=== PATIENT | male | born 1970 | race Caucasian/White ===

== ENCOUNTER → 2022-04-26 | Outpatient (CLI) | payer MEDICAID, SELFPAY ==
--- NOTE | 2022-04-26 14:41 | CT_ITS ---
HISTORY: COPD/SMOKER. 2 PPD X 35 YEARS. TECHNIQUE: Helically acquired images were obtained of the chest without contrast. A radiation dose optimization technique was used for this scan. 582 images. COMPARISON: None. FINDINGS: LARGE AIRWAYS: Patent. LUNGS: Centrilobular emphysema with hyperinflation. Calcified right lower lobe granuloma. PLEURA: No pneumothorax or significant pleural effusion. HEART/PERICARDIUM: Heart within normal limits in size. Coronary artery calcification present. No pericardial effusion. VESSELS: Thoracic aorta nondilated. MEDIASTINUM/LOTTIE: No pathologically enlarged adenopathy. BONES: Spinal osteophytes noted. CT/Low Dose CT Lung Screening IMPRESSION: Pulmonary emphysema with a calcified right lower lobe granuloma. Lung-RADS category 1: Negative. Continue annual screening with low-dose CT. Electronically Signed: Krystal Holder MD at 16:54 EDT ,
== END | disposition home or self-care (01) ==
LOC: CT 14:40
PROVIDERS: PCP Family Medicine; Referring Provider Internal Medicine Pulmonary Disease; Visit Provider Internal Medicine Pulmonary Disease
DX: Z12.2 Encounter for screening for malignant neoplasm of respiratory organs (principal); Z87.891 Personal history of nicotine dependence
CPT/HCPCS: 71271

== ENCOUNTER 2024-02-28 19:27 | Inpatient (IN) | payer MEDICARE, MEDICAID, SELFPAY ==
[2024-02-28 19:29] VITALS: BP 107/54; PULSE 105; RESP 12; TEMP 36.9; O2SAT 100; O2SAT 99
[2024-02-28 20:52] LABS: Absolute Neutrophil Count 5.3 X10^3/uL (2.0-7.7); Basophil# 0.02 X10^3/uL; Basophil% 0.3 % (0-1); Eosinophils% 1.4 % (0-5); Hematocrit 23.1 % (40-54); Lymphocyte % 9.5 % (19-41); Mean Platelet Vol. 9.5 fl (6.2-12.0); Monocyte# 1.21 X10^3/uL; Monocyte% 16.4 % (0-10); NRBC Flagged by Analyzer 0 % (0-5); Neutrophil % 71.5 % (47-70); POSITIVE COUNT YES; Platelet Count 88 K/mm3 (150-450); RBC Distribution Width CV 14.7 % (11.6-14.6); Red Blood Count 2.18 M/mm3 (4.6-6.2); White Blood Count 7.4 K/mm3 (4.4-11.0)
--- NOTE | 2024-02-28 21:04 | CT_ITS ---
EXAM: CT ABDOMEN AND PELVIS WITH INTRAVENOUS CONTRAST CLINICAL INDICATION: Abdominal pain -- IV PO Contrast TECHNIQUE: Helically acquired images were obtained of the abdomen and pelvis with intravenous contrast. CTDIvol = ( 16.09 ) mGy, DLP = ( 1390.50 ) mGycm This CT exam was performed using one or more of the following dose reduction techniques: automated exposure control, adjustment of the mA and/or kV according to patient size, and/or use of iterative reconstruction technique. CONTRAST: Oral and amp; IV Gastrografin and amp; 100mL [id number] COMPARISON: No relevant prior studies available. FINDINGS: LOWER THORAX: Lung bases are clear. No cardiomegaly. No significant pericardial effusion. ABDOMEN: LIVER: Cirrhotic liver with recanalization of the periumbilical vein. GALLBLADDER AND BILE DUCTS: Cholelithiasis. Gallbladder sludge suspected. No gallbladder distention or wall edema. No intra- or extrahepatic biliary ductal dilation. PANCREAS: Unremarkable. No focal cystic or solid mass. SPLEEN: Unremarkable. Normal size without focal cystic or solid mass. ADRENALS: Unremarkable. No nodules. KIDNEYS AND URETERS: Unremarkable. Normal renal size and position. No hydronephrosis. STOMACH AND BOWEL: Moderate-sized fat-containing right inguinal hernia containing fluid. No bowel herniation. No bowel obstruction or diverticulitis. Circumferential thickening of the wall of the colon may be related to chronic liver disease/cirrhosis. PELVIS: APPENDIX: No evidence of acute appendicitis. BLADDER: Unremarkable. REPRODUCTIVE: Unremarkable as visualized. No mass. ABDOMEN and PELVIS: INTRAPERITONEAL SPACE: Extensive ascites. No free air. BONES/JOINTS: Unremarkable. No suspicious lytic or sclerotic lesions of bone. SOFT TISSUES: Anasarca. Small fat-containing umbilical hernia. VASCULATURE: Main portal vein appears to be patent. Abdominal aorta is non-dilated. LYMPH NODES: Unremarkable. No enlarged lymph nodes. CT/Abdomen/Pelvis WITH Contrast IMPRESSION: 1. Cirrhosis with extensive ascites/portal hypertensive changes including recanalization of paraumbilical vein. 2. Medium-sized ascites-containing right inguinal hernia. No bowel herniation. Electronically Signed: Isaias Greenberg MD at 0:16 EDT ,
--- NOTE | 2024-02-28 21:06 | ED.VIS.GI ---
HPI HPI - GI History of Present Illness Chief Complaint: Abd Pain Informant: patient and family Abdominal Pain/Flank Pain Onset: Weeks and Month(s) Context: Gradual Onset Timing: Continuous Quality: Burning Location: RLQ and LLQ Worsened by: Nothing Relieved by: Nothing Nausea/Vomiting/Emesis GI Symptom: Negative for Nausea or Vomiting Diarrhea/Melena/Hematochezia GI Symptom: Positive for Diarrhea; Negative for Melena or Hematochezia Associated Symptoms Associated Symptoms: Negative for Dysuria, Frequency, Hematuria or Urgency Narrative Narrative: Patient presents with abdominal pain and lower extremity weakness that has been getting worse over the past week to month. Patient states the abdominal pain has been constant for the past week. Patient states that his lower extremity weakness has been constant for the last month. Patient describes his pain as burning. Patient states it is mainly over the lower abdomen. Patient states it is worse whenever he coughs. Patient denies any fevers or chills. Patient denies any nausea or vomiting. Patient does admit to some diarrhea. Mother states that his eyes appear yellow. Patient does admit to drinking 2 drinks per day. Patient denies any drug use. [facility] Medical History (Updated 02/29/24 @ 01:[address] David Gonzalez DO) GERD (gastroesophageal reflux disease) COPD (chronic obstructive pulmonary disease) Hypertension Home Medications ?Medication ?Instructions ?Recorded ?Last Taken ?Type albuterol sulfate 90 mcg/actuation 2 puff inhalation Q6H PRN PRN 02/29/24 Unknown History aerosol inhaler shortness of breath or wheezing amlodipine 5 mg tablet 5 mg PO DAILY 02/29/24 Unknown History budesonide-formoterol HFA 160 2 puff inhalation BID 02/29/24 Unknown History mcg-4.5 mcg/actuation aerosol inhaler (Symbicort) lisinopril 40 mg tablet 40 mg PO DAILY 02/29/24 Unknown History Allergy/AdvReac Type Severity Reaction Status Date / Time No Known Allergies Allergy Verified 02/28/24 19:29 Surgical History no surgical history no surgical history Social History Smoking Status: Current every day smoker tobacco type: cigarettes and smokeless tobacco ROS ROS ED Constitutional Constitutional ED: Denies chills or fever(s) Eyes Eyes: Reports blurry vision and change in vision ENT ENT ED: Denies rhinorrhea or sore throat Cardiovascular Cardiovascular: Denies chest pain or palpitations Respiratory/Chest Respiratory/Chest: Denies cough or dyspnea Gastrointestinal Gastrointestinal: Reports abdominal pain and diarrhea; Denies nausea or vomiting Genitourinary Genitourinary ED: Denies dysuria or hematuria Musculoskeletal Musculoskeletal: Denies back pain or neck pain Integumentary Denies abscess or rash Neurologic Neurologic: Reports weakness; Denies headache(s) Allergic/Immunologic Allergic/Immunologic ED: Denies mouth swelling or urticaria EXAM Physical Exam Const Vital Signs: 02/28/24 19:29 02/28/24 19:29 02/28/24 20:43 Temperature 98.5 F 98.5 F Temperature Source Oral Oral Pulse Rate 105 H 105 H Respiratory Rate 12 12 Respiratory Effort Normal Respiratory Pattern Normal Blood Pressure 107/54 L 107/54 L Blood Pressure Mean 71 71 Pulse Ox 99 100 Oxygen Delivery Method Room Air Room Air Oxygen Flow Rate (L/min) 02/28/24 21:28 02/28/24 23:00 02/29/24 01:00 Temperature Temperature Source Pulse Rate 89 102 H 91 Respiratory Rate 16 20 H 20 H Respiratory Effort Respiratory Pattern Blood Pressure 118/58 L 146/74 H 134/70 H Blood Pressure Mean 78 98 91 Pulse Ox 100 93 93 Oxygen Delivery Method Room Air Room Air Room Air Oxygen Flow Rate (L/min) 02/29/24 01:45 02/29/24 01:46 Temperature Temperature Source Pulse Rate Respiratory Rate Respiratory Effort Respiratory Pattern Blood Pressure Blood Pressure Mean Pulse Ox 88 93 Oxygen Delivery Method Room Air Nasal Cannula Oxygen Flow Rate (L/min) 2 Positive well nourished and well developed General Appearance ED: well developed and NAD HEENT Reports moist mucous membranes Eyes EOMs intact bilaterally General Eye ED: Yes scleral icterus Neck supple and no JVD Resp normal respiratory effort and clear to auscultation bilaterally Cardio regular rate and regular rhythm GI GI Narrative: There is ascites noted on exam. The abdomen is distended. Palpation: soft and tender LLQ, RLQ and suprapubic; Negative for guarding or rebound tenderness present Neuro CN's II-XII intact bilaterally, moves all extremities and no sensory deficits noted Sensorium / Orientation: alert Motor Exam: general weakness MDM MDM MDM Narrative Medical decision making narrative: Differential diagnosis includes anemia, electrolyte abnormality, cirrhosis, hepatic encephalopathy, cholecystitis, cholelithiasis, sepsis, and pancreatitis. CBC will be obtained to assess for leukocytosis and anemia. Comprehensive metabolic profile will be obtained to assess for hepatic function, renal function, and electrolyte abnormality. Lipase will be obtained to assess for pancreatitis. Serum lactate will be obtained to assess for sepsis. PT with INR and PTT will be obtained to assess for coagulopathy and hepatic function. Serum alcohol level will be obtained to assess for alcohol intoxication. Ammonia level will be obtained to assess for hepatic encephalopathy. CT scan of the abdomen and pelvis will be obtained to assess for cholecystitis, ascites, bowel obstruction, and perforation. Lab Data Attestation: I reviewed the patient's lab results. Lab results narrative: CBC was reviewed. There is an anemia with a hemoglobin of 8.4 hematocrit 23.1. Platelets were low at 88. White blood cell count was normal. Comprehensive metabolic profile showed a sodium of 112 and a chloride of 77. Total bilirubin was elevated at 10.8. AST was slightly elevated at 122, ALT was 49. PT with INR and PTT were reviewed. Pro time was elevated at 26.3. INR is 2.4. PTT was elevated at 41.2. Lipase was reviewed and was slightly elevated at 104. Serum alcohol level was reviewed and was 18. Serum ammonia level was reviewed and was less than 10. Urinalysis was reviewed. Leukocyte Estrace was only 25. There were 5-10 white blood cells and 1+ bacteria. Nitrates were negative. Occult blood was 25 and there were 5-10 red blood cells noted. Labs: Laboratory Results - last 24 hr 02/28/24 02/28/24 02/28/24 20:35 21:12 23:00 WBC 7.4 RBC 2.18 L Hgb 8.4 L Hct 23.1 L MCV 106.0 H MCH 38.5 H MCHC 36.4 H RDW Std Deviation 56.0 H RDW Coeff of Pushpa 14.7 H Plt Count 88 L MPV 9.5 Immature Gran % (Auto) 0.900 Neut % (Auto) 71.5 H Lymph % (Auto) 9.5 L Mercer % (Auto) 16.4 H Eos % (Auto) 1.4 Baso % (Auto) 0.3 Absolute Neuts (auto) 5.3 Absolute Lymphs (auto) 0.70 L Nucleated RBC % 0 PT 26.3 H INR 2.4 APTT 41.2 H Sodium 112 L* Potassium 4.8 Chloride 77 L Carbon Dioxide 27.0 Anion Gap 8 BUN 21 H Creatinine 0.91 Est GFR (MDRD) Af Amer 112 Est GFR (MDRD) Non-Af 93 BUN/Creatinine Ratio 23.1 H Glucose 87 Lactic Acid 2.4 H* Calcium 8.4 L Total Bilirubin 10.80 H AST 122 H ALT 49 Alkaline Phosphatase 101 Ammonia < 10.0 L Total Protein 7.1 Albumin 1.9 L Globulin 5.2 H Albumin/Globulin Ratio 0.4 L Lipase 104 H Urine Color Urine Clarity Urine pH Ur Specific [place] Urine Protein Urine Glucose (UA) Urine Ketones Urine Occult Blood Urine Nitrite Urine Bilirubin Urine Urobilinogen Ur Leukocyte Esterase Urine RBC Urine WBC Ur Squamous Epith Cells Urine Bacteria Urine Mucus Ethyl Alcohol 18.0 02/28/24 02/29/24 23:37 01:42 WBC RBC Hgb Hct MCV MCH MCHC RDW Std Deviation RDW Coeff of Pushpa Plt Count MPV Immature Gran % (Auto) Neut % (Auto) Lymph % (Auto) Mercer % (Auto) Eos % (Auto) Baso % (Auto) Absolute Neuts (auto) Absolute Lymphs (auto) Nucleated RBC % PT INR APTT Sodium Potassium Chloride Carbon Dioxide Anion Gap BUN Creatinine Est GFR (MDRD) Af Amer Est GFR (MDRD) Non-Af BUN/Creatinine Ratio Glucose Lactic Acid 2.1 H* Calcium Total Bilirubin AST ALT Alkaline Phosphatase Ammonia Total Protein Albumin Globulin Albumin/Globulin Ratio Lipase Urine Color Jenny Urine Clarity Clear Urine pH 5.0 Ur Specific [place] 1.010 Urine Protein 30 H Urine Glucose (UA) Normal Urine Ketones 15 H Urine Occult Blood 25 H Urine Nitrite Negative Urine Bilirubin 6 H Urine Urobilinogen 8 H Ur Leukocyte Esterase 25 H Urine RBC 5-10 SEEN Urine WBC 5-10 SEEN Ur Squamous Epith Cells 0-5 SEEN Urine Bacteria 1+ Urine Mucus 0 SEEN Ethyl Alcohol Radiography Diagnostic Testing: Clinical Impression(s) from Imaging Studies Abdomen/Pelvis CT 02/28/24 21:04 IMPRESSION: 1. Cirrhosis with extensive ascites/portal hypertensive changes including recanalization of paraumbilical vein. 2. Medium-sized ascites-containing right inguinal hernia. No bowel herniation. Electronically Signed: Isaias Greenberg MD at 0:16 EDT , CT scan of the abdomen and pelvis was obtained. There is evidence of cirrhosis with extensive ascites and portal hypertension. There is a right inguinal hernia containing ascites and fat. This was interpreted by the radiologist and was also independently reviewed by myself. Management Discussion w/another healthcare provider: Hospitalist and [employer] Additional Tests and Interventions Additional Tests or Interventions: Urine culture was ordered. Treatment and Re-Evaluation :: Patient was given IV fluids. Patient was given a dose of morphine and Zofran initially. Patient started complaining of some reflux symptoms. Patient was given a GI cocktail for this. Patient was feeling better after that. Patient was advised of his findings. Patient was advised of the need for admission to the hospital. Case was discussed with the hospitalist. He will admit the patient to PCU to his service. Patient and family understood and were agreeable with the plan. All questions were answered. Discharge Plan Dx/Rx/DC Orders Clinical Impression: Acute hyponatremia, Hyperbilirubinemia, Cirrhosis, Lactic acidosis Disposition Disposition: [facility] Discharge Date/Time: 02/29/24 02:34
[2024-02-28 21:11] LABS: ALB/GLOB Ratio 0.4 RATIO (0.9-2.4); AST(SGOT) 122 U/L (15-37); Alanine Aminotransfer ALT/SGPT 49 U/L (16-61); Albumin, Serum 1.9 g/dL (3.2-5.0); Alkaline Phosphatase 101 U/L (45-117); Anion Gap 8 (5-15); BUN 21 mg/dL (7-18); BUN/Creat Ratio 23.1 RATIO (10-20); Calcium,Total 8.4 mg/dL (8.5-10.1); Chloride 77 mmol/L (98-107); Creatinine, Serum 0.91 mg/dL (0.70-1.30); EST Glomerular Filtration Rate 93 mL/min (>60); Est Glom Filt Rate - Afr Amer 112 mL/min (>60); Globulin 5.2 g/dL (2.2-4.2); Glucose 87 mg/dL (74-106); Potassium 4.8 mmol/L (3.5-5.1); Protein, Total 7.1 g/dL (6.4-8.2); Sodium Level 112 mmol/L (136-145)
[2024-02-28 21:19] VITALS: BMI 34.4
[2024-02-28] MEDS: Morphine 4 MG/ML Syringe IV (21:21)
[2024-02-28] MEDS: 0.9% Normal Saline (1000mL) 1,000 ML 1000 ML IV (21:21)
[2024-02-28] MEDS: Ondansetron 4 MG/2 ML Vial IV (21:21)
[2024-02-28 21:23] LABS: Hemoglobin 8.4 g/dL (13.0-16.5); Mean Corp Hgb Conc 36.4 g/dL (32-36); Mean Corpuscular Hgb 38.5 pg (27.0-32.0)
[2024-02-28 21:28] VITALS: BP 118/58; PULSE 89; RESP 16; O2SAT 100
[2024-02-28 21:37] LABS: International Normalized Ratio 2.4; Prothrombin Time (Protime)PT. 26.3 SECONDS (11.7-14.9)
[2024-02-28 21:38] LABS: Lipase 104 U/L (13-75); Partial Thromboplast Time 41.2 Seconds (24.1-36.2)
[2024-02-28 21:57] LABS: Lactic Acid 2.4 mmol/L (0.4-1.9)
[2024-02-28 23:00] VITALS: BP 146/74; PULSE 102; RESP 20; O2SAT 93
[2024-02-28] MEDS: Mag Hydrox/Al Hydrox/Simeth 30 ML UDC PO (23:22)
[2024-02-28] MEDS: Lidocaine 2% Viscous15 ML UDC 15 ML PO (23:22)
[2024-02-28 23:42] LABS: Mucous, Urine 0 SEEN /hpf (<or=2+)
[2024-02-28 23:48] LABS: Ammonia < 10.0 umol/L (11-32)
[2024-02-28 23:51] LABS: Color, Urine Amber (Yellow); Glucose, Dipstick Normal (Normal); Ketone-Dipstick 15 mg/dl (Negative); Leukocyte Esterase-Dipstick 25 /ul (Negative); Nitrite-Dipstick Negative (Negative); Occult Blood-Urine 25 /ul (Negative); Protein-Dipstick 30 mg/dl (Negative); Urine Clarity Clear (Clear); Urine Urobilinogen 8 mg/dl (Normal)
[2024-02-29] VITALS (32 sets, daily range): BP systolic 60–142; BP diastolic 30–114; PULSE 76–104; RESP 16–32; TEMP 36.1–37; O2SAT 86–100; BMI 33.9
--- NOTE | 2024-02-29 | FLU_PTH ---
PATIENT: ALEX GAYTAN LOC: [facility] U#:[id number] AGE/SX: 54/M ROOM: ICU03 RE02/29/[address]: Dr. Noris Pantoja MD : 1970 BED: 1 DIS: 03/01/2024 SPEC #: [id number] RECD: 02/29/24 08:37 STATUS: FRANCISCO JAVIER REQ #: [id number] JESS: 02/29/24 00:[address]: Noris Pantoja DEPT: CYTOLOGY RECD BY: Claritza Ruiz ENTERED: 02/29/24 10:11 SP TYPE: Fluid OTHR DR: Dr. Gagan Aburto, MD [address] [facility], DO Tissues: PARACENTESIS FLUID Procedures: Special Stain Group II Surgery Specimen Level IV Cytospin Fluid HEADER OPERATION: Paracentesis PRE-OP DIAGNOSIS: Ascites TISSUE SUBMITTED: Paracentesis fluid for cytology DIAGNOSIS CYTOLOGY Paracentesis fluid for cytology (cytopsin and cellblock): Negative for malignant cells. AM/ 03/01/2024 CYTOLOGY STUDY Slides are reviewed. CYTOLOGY GROSS Received is 85 ml of hazy yellow fluid labeled with the patient's name and and designated per the requisition as Paracentesis fluid. Submitted for cytology preparation including cell block. Mr 02/29/2024 TC:5 CPT: 90776
[2024-02-29 00:07] LABS: Urine Bilirubin Dipstick 6 mg/dL (Negative)
[2024-02-29 00:08] LABS: Bacteria 1+ /hpf (None Seen); Red Blood Cells-Urine 5-10 SEEN /hpf (0-5); Squamous Epithelial Cells - UA 0-5 SEEN /hpf (0-5); White Blood Cells 5-10 SEEN /hpf (0-5)
[2024-02-29 01:18] LABS: Reflex Lactate? Y
--- NOTE | 2024-02-29 01:33 | PCM.HP.STD ---
HPI - General General Date of Admission: 02/29/24 Date of Service: 02/29/24 Chief Complaint: Worsening abdominal pain and distention HPI Narrative ALEX GAYTAN, is a 54 M who presented to [facility] ED on 02/29/2024 with worsening abdominal pain and distention. Patient seen at bedside in the ED. He was sitting up fairly comfortably in bed, making appropriate eye contact and answering questions with short appropriate responses. He did seem to have mild cognitive delay. He otherwise was in no acute distress. Patient states his abdomen has steadily been increasing in size over about a month. He has never had this before. Patient reports fairly heavy drinking history in the past but states has been weaning himself off alcohol since his abdominal pain and distention started and is currently only having about 2 beers per day. Denies any alcohol withdrawal symptoms. Has had decreased appetite and has felt more full over the past 2 weeks. Denies any fevers or chills. Reports occasional diarrhea but denies any nausea or vomiting. He otherwise currently denies any acute concerns. Per ED staff, patient mother was present with him on arrival to the ED. She also noticed that his eyes were becoming more yellow and his skin seem to be yellowing as well. Patient states that he lives with his girlfriend. States he has not been able to do much around the house over the past few weeks. Vitals in ED notable for mild sinus tachycardia, otherwise unremarkable. No baseline labs were available. Labs in ED notable for hemoglobin 8.4, MCV 106, platelets 88, INR 2.4, sodium 112, potassium 4.8, chloride 77, bicarb 27, BUN 21, creatinine 0.91, T. bili 10.0, AST 122, ALT 49, alk phos 101, albumin 1.9. Lactate 2.4. CT abdomen pelvis with IV contrast showed cirrhosis with extensive ascites along with anasarca. In the ED, patient was given 1 L normal saline bolus along with serial doses of IV morphine and IV Zofran. Patient was then admitted for further management. [facility] Medical History (Updated 02/29/24 @ 06:[address] Gagan Aburto, DO) GERD (gastroesophageal reflux disease) COPD (chronic obstructive pulmonary disease) Hypertension Home Medications ?Medication ?Instructions ?Recorded ?Last Taken ?Type albuterol sulfate 90 mcg/actuation 2 puff inhalation Q6H PRN PRN 02/29/24 Unknown History aerosol inhaler shortness of breath or wheezing amlodipine 5 mg tablet 5 mg PO DAILY 02/29/24 Unknown History budesonide-formoterol HFA 160 2 puff inhalation BID 02/29/24 Unknown History mcg-4.5 mcg/actuation aerosol inhaler (Symbicort) lisinopril 40 mg tablet 40 mg PO DAILY 02/29/24 Unknown History Allergy/AdvReac Type Severity Reaction Status Date / Time No Known Allergies Allergy Verified 02/29/24 03:15 Surgical History no surgical history Social History Smoking Status: Current every day smoker tobacco type: cigarettes and smokeless tobacco ROS Constitutional Constitutional: Reports fatigue; Denies chills or fever(s) Eyes Eyes: Denies change in vision Cardiovascular Cardiovascular: Denies chest pain Respiratory/Chest Respiratory/Chest: Reports shortness of breath with exertion; Denies cough, shortness of breath at rest or wheezing Gastrointestinal Gastrointestinal: Reports abdominal pain and diarrhea; Denies constipation, nausea or vomiting Neurologic Neurologic: Denies dizziness, focal weakness or headache(s) Vital Signs Vital Signs Vital Signs: 02/28/24 19:29 02/28/24 19:29 02/28/24 20:43 Temperature 98.5 F 98.5 F Temperature Source Oral Oral Pulse Rate 105 H 105 H Respiratory Rate 12 12 Respiratory Effort Normal Respiratory Pattern Normal Blood Pressure 107/54 L 107/54 L Blood Pressure Mean 71 71 Pulse Ox 99 100 Oxygen Delivery Method Room Air Room Air 02/28/24 21:28 02/28/24 23:00 02/29/24 01:00 Temperature Temperature Source Pulse Rate 89 102 H 91 Respiratory Rate 16 20 H 20 H Respiratory Effort Respiratory Pattern Blood Pressure 118/58 L 146/74 H 134/70 H Blood Pressure Mean 78 98 91 Pulse Ox 100 93 93 Oxygen Delivery Method Room Air Room Air Room Air Weight Weight: 105.7 kg Body Mass Index (BMI) 34.4 Physical Exam Const alert and no apparent distress Constitutional Narrative: Middle-age male, obese, sitting up fairly comfortably in bed, mild cognitive slowing noted but otherwise answering questions appropriately, in no acute distress. General Appearance: cooperative and comfortable HEENT normocephalic, head/scalp atraumatic, hearing grossly normal bilaterally and nasal mucous membranes and turbinates normal Eyes PERRL, EOMs intact bilaterally and conjunctivae normal Neck full ROM Chest inspection of chest normal Resp normal respiratory effort and no use of accessory muscles Resp Narrative: Mildly decreased breath sounds in bilateral lung bases. No wheezing or rales noted. Cardio regular rate, regular rhythm, no murmurs and peripheral pulses 2+ throughout GI GI Narrative: Moderate to severe abdominal distention with fluid wave noted. No tenderness to palpation. Back/Spine normal ROM Extremity normal to inspection, full ROM and no pedal edema Skin no rashes or lesions noted Neuro moves all extremities and no focal motor deficits Speech: speech normal Psych mental status grossly normal Results Lab / Micro Data 02/29/24 05:07 02/29/24 02:22 Labs: Laboratory Results - last 24 hr 02/28/24 20:35: WBC 7.4, RBC 2.18 L, Hgb 8.4 L, Hct 23.1 L, MCV 106.0 H, MCH 38.5 H, MCHC 36.4 H, RDW Std Deviation 56.0 H, RDW Coeff of Pushpa 14.7 H, Plt Count 88 L, MPV 9.5, Immature Gran % (Auto) 0.900, Neut % (Auto) 71.5 H, Lymph % (Auto) 9.5 L, [place] % (Auto) 16.4 H, Eos % (Auto) 1.4, Baso % (Auto) 0.3, Absolute Neuts (auto) 5.3, Absolute Lymphs (auto) 0.70 L, Nucleated RBC % 0, Sodium 112 L*, Potassium 4.8, Chloride 77 L, Carbon Dioxide 27.0, Anion Gap 8, BUN 21 H, Creatinine 0.91, Est GFR (MDRD) Af Amer 112, Est GFR (MDRD) Non-Af 93, BUN/Creatinine Ratio 23.1 H, Glucose 87, Calcium 8.4 L, Total Bilirubin 10.80 H, AST 122 H, ALT 49, Alkaline Phosphatase 101, Total Protein 7.1, Albumin 1.9 L, Globulin 5.2 H, Albumin/Globulin Ratio 0.4 L 02/28/24 21:12: PT 26.3 H, INR 2.4, APTT 41.2 H, Lactic Acid 2.4 H*, Lipase 104 H, Ethyl Alcohol 18.0 02/28/24 23:00: Ammonia < 10.0 L 02/28/24 23:37: Urine Color Jenny, Urine Clarity Clear, Urine pH 5.0, Ur Specific [place] 1.010, Urine Protein 30 H, Urine Glucose (UA) Normal, Urine Ketones 15 H, Urine Occult Blood 25 H, Urine Nitrite Negative, Urine Bilirubin 6 H, Urine Urobilinogen 8 H, Ur Leukocyte Esterase 25 H, Urine RBC 5-10 SEEN, Urine WBC 5-10 SEEN, Ur Squamous Epith Cells 0-5 SEEN, Urine Bacteria 1+, Urine Mucus 0 SEEN Imaging Radiology Impression Abdomen/Pelvis CT 02/28/24 21:04 IMPRESSION: 1. Cirrhosis with extensive ascites/portal hypertensive changes including recanalization of paraumbilical vein. 2. Medium-sized ascites-containing right inguinal hernia. No bowel herniation. Electronically Signed: Isaias Greenberg MD at 0:16 EDT , Assessment & Plan Assessment/Plan (1) Acute liver failure: (2) Decompensation of cirrhosis of liver: (3) Alcohol abuse: (4) Hyponatremia: PLAN: Plan Patient is a 54-year-old male who presented to [facility] ED on 02/29/2024 with worsening abdominal pain and distention. 1. Acute liver failure suspected secondary to decompensated alcoholic cirrhosis with ascites ? Admit under inpatient status to PCU. GI consulted. MELD-Na score on admit of 31, Maddrey's score of 67. Suspect elevated INR may impart be due to a nutritional deficiency, will give a dose of IV vitamin K 5 mg. Radiology consulted for diagnostic and therapeutic ultrasound-guided paracentesis. Will defer to GI on consideration of steroids. Acute hepatitis panel ordered. Acetaminophen level ordered. Monitor closely. 2. Severe hyponatremia ? Sodium 112 on admit. Chloride 77. Mild cognitive slowing noted but otherwise alert and oriented x 3, suspect this is more chronic than acute. Serum osmolality, urine osmolality and urine sodium ordered. Given 1 L normal saline in the ED, repeat sodium 4 hours later only up to 115. Will hold on further IV fluids for now, repeat BMP at 6 AM. Nephrology consulted. Goal sodium level 118-120 in first 24 hours. 3. Macrocytic anemia ? Hemoglobin 8.4 on admit, MCV 106. Baseline unknown. No active signs of bleeding noted. Iron studies showed normal iron level, ferritin significantly elevated at 3923. Vitamin B12 level greater than 2000, folate 5. Seems most consistent with anemia of chronic disease. Monitor daily CBC. 4. Alcohol abuse ? Previous heavy drinker, denies history of alcohol withdrawal. Has been self weaning recently per his report, suspect due to feeling poor with decompensated cirrhosis. Alcohol level only 18 on admit. [facility] protocol ordered with as needed medications per alcohol withdrawal order set. Folate and thiamine ordered. 5. Elevated lactic acid ? Lactate 2.4 on admit, slightly improved to 2.1 with IV fluid resuscitation. Suspect poor clearance of lactate due to acute liver failure. Treatment as above. 6. Thrombocytopenia ? Platelets 88 on admit. Baseline unknown. No active signs of bleeding. Presumed secondary to cirrhosis. Monitor daily CBC. Chronic medical conditions: ? Obesity: BMI 33 on admit. Complicates hospital course, care and prognosis. ? Hypertension: Home regimen of amlodipine 5 mg daily and lisinopril 40 mg daily. Normotensive on admission and given liver failure as noted above, will hold home medications for now. ? COPD: Not on home O2. Stable, not in acute exacerbation. Continue home inhalers. DVT prophylaxis: SCDs given elevated INR and thrombocytopenia CODE STATUS: Full code, unverified Expected disposition: TBD Total clinical time spent by myself addressing the patient's medical issues, reviewing all the data, and collaborating with patient's care team: 75 minutes. Charges/Coding Visit Charges Inpatient E&M: 52420 Init Hosp L3
[2024-02-29 02:29] LABS: Lactic Acid 2.1 mmol/L (0.4-1.9)
[2024-02-29 03:00] LABS: Anion Gap 9 (5-15); BUN 25 mg/dL (7-18); BUN/Creat Ratio 21.2 RATIO (10-20); Calcium,Total 8.6 mg/dL (8.5-10.1); Chloride 77 mmol/L (98-107); Creatinine, Serum 1.18 mg/dL (0.70-1.30); EST Glomerular Filtration Rate 69 mL/min (>60); Est Glom Filt Rate - Afr Amer 83 mL/min (>60); Estimated Creatinine Clearance 86.08 ml/min; Glucose 93 mg/dL (74-106); Potassium 4.9 mmol/L (3.5-5.1); Sodium Level 115 mmol/L (136-145)
[2024-02-29] MEDS: 0.9% Saline Lock 10 ML Syringe IV ×2 (03:28→04:10)
[2024-02-29] MEDS: Phytonadione (Vit K) 5 MG in 0.9% Normal Saline (50mL Bag) 50 ML 150 MG IV (03:28)
[2024-02-29 03:32] LABS: Osmolality, Serum 261 mOsm/KG (275-295)
[2024-02-29 03:58] LABS: Ferritin 3923 ng/mL (26-388); Iron 87 ug/dL (65-175); Iron Binding Capacity,Total 104 ug/dL (250-450); PERCENT IRON SATURATION 83.7 % (15.0-55.0)
[2024-02-29] MEDS: oxyCODONE 5 MG Tablet PO (04:10)
[2024-02-29 05:11] LABS: Vitamin B12 > 2000 pg/mL (211-911)
[2024-02-29 05:20] LABS: Hematocrit 23.8 % (40-54); Hemoglobin 8.8 g/dL (13.0-16.5); Mean Corpuscular Hgb 39.1 pg (27.0-32.0); Mean Corpuscular Volume 105.8 fL (80-94); Mean Platelet Vol. 9.4 fl (6.2-12.0); POSITIVE COUNT YES; Platelet Count 94 K/mm3 (150-450); RBC Distribution Width CV 14.8 % (11.6-14.6); RBC Distribution Width SD 57.3 fl (35.1-43.9); Red Blood Count 2.25 M/mm3 (4.6-6.2); White Blood Count 9.7 K/mm3 (4.4-11.0)
[2024-02-29 05:27] LABS: International Normalized Ratio 2.6; Prothrombin Time (Protime)PT. 27.7 SECONDS (11.7-14.9)
[2024-02-29 06:08] LABS: ALB/GLOB Ratio 0.4 RATIO (0.9-2.4); AST(SGOT) 133 U/L (15-37); Alanine Aminotransfer ALT/SGPT 54 U/L (16-61); Albumin, Serum 1.9 g/dL (3.2-5.0); Alkaline Phosphatase 101 U/L (45-117); Anion Gap 8 (5-15); BUN 26 mg/dL (7-18); BUN/Creat Ratio 18.2 RATIO (10-20); Calcium,Total 8.6 mg/dL (8.5-10.1); Chloride 77 mmol/L (98-107); Creatinine, Serum 1.43 mg/dL (0.70-1.30); EST Glomerular Filtration Rate 55 mL/min (>60); Est Glom Filt Rate - Afr Amer 67 mL/min (>60); Estimated Creatinine Clearance 71.03 ml/min; Globulin 5.4 g/dL (2.2-4.2); Glucose 91 mg/dL (74-106); Potassium 5.1 mmol/L (3.5-5.1); Protein, Total 7.3 g/dL (6.4-8.2); Sodium Level 114 mmol/L (136-145)
[2024-02-29 06:48] LABS: Acetaminophen (Tylenol) Level < 2.0 ug/mL (10.0-30.0)
[2024-02-29] MEDS: Budesonide Respules 0.5 MG/2 ML AMPUL.NEB. INHALATION ×2 (07:15→19:59)
[2024-02-29] MEDS: Albuterol 2.5 MG/3 ML VIAL.NEB. INHALATION ×3 (07:15→19:59)
[2024-02-29] MEDS: Lidocaine 2% (20 ml mdv) 20 ML Vial INFILT (08:17)
[2024-02-29] MEDS: Thiamine Hydrochloride 100 MG Tablet PO (08:55)
[2024-02-29] MEDS: Folic Acid 1 MG Tablet 2 MG PO (08:56)
[2024-02-29 09:42] LABS: Appearance/Body Fluid SL CLDY; Auto B Fluid Analyzer BKGD Ct COUNTS W/IN LIMITS (W/IN LIMITS); Color/Body Fluid YELLOW; Source- Body Fluid PARACENTESIS
[2024-02-29 09:43] LABS: Red Cell Count/Body Fluid 430 /mm3; White Blood Count/Body Fluid 425 /mm3
[2024-02-29 09:51] LABS: Body Fluid QC Type(s) BF1Q
[2024-02-29 10:01] LABS: Lymphocytes 4 %; Mesothelial Cells 7 %; Monocytes 10 %; Neutrophil (Segs) 71 %; Other Cell Type/BF 8 %
--- NOTE | 2024-02-29 10:23 | PRO.PCM_ITS ---
Procedure Report Date of Procedure: 02/29/24 Assessment & Plan Assessment/Plan (1) Ascites: QUALIFIERS: Ascites type: due to alcoholic cirrhosis Qualified Code(s): K70.31 - Alcoholic cirrhosis of liver with ascites PLAN: PROCEDURE: Ultrasound guided paracentesis ORDERING PROVIDER: Dr. Aburto INDICATION: Male, 54 years old. Ascites. PROVIDER: KLAUDIA Ngo TECHNIQUE: The risks, benefits, and alternatives to the procedure were explained to the patient. The specific risks of bleeding, infection, and damage to bowel were detailed and accepted. Witnessed informed consent was obtained. The abdomen was ultrasonographically surveyed. An appropriate pocket of fluid was identified in the right lower quadrant. The skin was prepped with ch lorhexidine and sterile field established. 2% lidocaine was used for local anesthetic. Using ultrasound guidance, the peritoneal cavity was accessed with a 5-Serbian paracentesis needle/catheter system. The trocar was removed. A total of 3550 ml of cloudy marta colored fluid was removed from the peritoneal cavity. The catheter was removed and a sterile dressing was applied. The procedure was well tolerated. IMPRESSION: Successful ultrasound-guided paracentesis with right lower quadrant access site. Procedures Radiology Radiology US Procedures: 36253 Paracentesis
--- NOTE | 2024-02-29 11:12 | PN_ITS ---
Subjective Subjective Patient seen and examined. He was admitted with a complaint of abdominal distension. He has a history of chronic alcohol abuse. He said he had never been diagnosed with any liver disease. He was found to have ascites and had paracentesis done today. Patient seen after paracentesis. He had no active complaints. HE denied any fever, chills, cough, chest pain, palpitations, dizziness, nausea, vomiting or diarrhea. Review of systems is otherwise negative. He says he has stopped drinking, but his last drink was actually 2-3 days before admission. Review of systems is otherwise negative. Objective Data Objective Data Vital Signs: Vital Signs Temp Pulse Resp BP Pulse Ox O2 Del Method O2 Flow Rate 97.8 F 94 20 H 95/49 L 94 Nasal Cannula 4 02/29/24 08:50 02/29/24 11:01 02/29/24 08:50 02/29/24 11:01 02/29/24 08:50 02/29/24 09:59 02/29/24 09:59 Oxygen Flow Rate (L/min) 4 Oxygen Delivery Method Nasal Cannula Weight: 229 lb 8.019 oz Body Mass Index (BMI) 33.9 Intake & Output: Intake and Output for Last 24 Hours 02/27/24 02/28/24 02/29/24 23:59 23:59 23:59 Intake Total 1000 / 1000 50.5 / 50.5 Output Total 3550 / 3550 Balance 1000 / 1000 -3499.5 / -3499.5 Lab / Micro Data 02/29/24 05:07 02/29/24 10:35 Labs: Laboratory Results - last 24 hr 02/28/24 20:35: WBC 7.4, RBC 2.18 L, Hgb 8.4 L, Hct 23.1 L, MCV 106.0 H, MCH 38.5 H, MCHC 36.4 H, RDW Std Deviation 56.0 H, RDW Coeff of Pushpa 14.7 H, Plt Count 88 L, MPV 9.5, Immature Gran % (Auto) 0.900, Neut % (Auto) 71.5 H, Lymph % (Auto) 9.5 L, [place] % (Auto) 16.4 H, Eos % (Auto) 1.4, Baso % (Auto) 0.3, Absolute Neuts (auto) 5.3, Absolute Lymphs (auto) 0.70 L, Nucleated RBC % 0, S odium 112 L*, Potassium 4.8, Chloride 77 L, Carbon Dioxide 27.0, Anion Gap 8, B UN 21 H, Creatinine 0.91, Est GFR (MDRD) Af Amer 112, Est GFR (MDRD) Non-Af 93, BUN/Creatinine Ratio 23.1 H, Glucose 87, Calcium 8.4 L, Total Bilirubin 10.80 H, AST 122 H, ALT 49, Alkaline Phosphatase 101, Total Protein 7.1, Albumin 1.9 L, G lobulin 5.2 H, Albumin/Globulin Ratio 0.4 L 02/28/24 21:12: PT 26.3 H, INR 2.4, APTT 41.2 H, Lactic Acid 2.4 H*, Lipase 104 H, Ethyl Alcohol 18.0 02/28/24 23:00: Ammonia < 10.0 L 02/28/24 23:37: Urine Color Jenny, Urine Clarity Clear, Urine pH 5.0, Ur Specific [place] 1.010, Urine Protein 30 H, Urine Glucose (UA) Normal, Urine Ketones 15 H, Urine Occult Blood 25 H, Urine Nitrite Negative, Urine Bilirubin 6 H, Urine Urobilinogen 8 H, Ur Leukocyte Esterase 25 H, Urine RBC 5-10 SEEN, Urine WBC 5-10 SEEN, Ur Squamous Epith Cells 0-5 SEEN, Urine Bacteria 1+, Urine Mucus 0 SEEN 02/29/24 01:42: Lactic Acid 2.1 H* 02/29/24 02:22: Sodium 115 L*, Potassium 4.9, Chloride 77 L, Carbon Dioxide 29.0, Anion Gap 9, BUN 25 H, Creatinine 1.18, Estim Creat Clear Calc 86.08, Est GFR (MDRD) Af Amer 83, Est GFR (MDRD) Non-Af 69, BUN/Creatinine Ratio 21.2 H, Glucose 93, Serum Osmolality 261 L, Calcium 8.6, Iron 87, TIBC 104 L, Iron Saturation 83.7 H, Ferritin 3923 H, Vitamin B12 > 2000 H, Folate 5.00, A cetaminophen < 2.0 L 02/29/24 05:07: WBC 9.7, RBC 2.25 L, Hgb 8.8 L, Hct 23.8 L, MCV 105.8 H, MCH 39.1 H, MCHC 37.0 H, RDW Std Deviation 57.3 H, RDW Coeff of Pushpa 14.8 H, Plt Count 94 L, MPV 9.4, PT 27.7 H, INR 2.6, Sodium 114 L*, Potassium 5.1, Chloride 77 L, Carbon Dioxide 29.0, Anion Gap 8, BUN 26 H, Creatinine 1.43 H, Estim Creat Clear Calc 71.03, Est GFR (MDRD) Af Amer 67, Est GFR (MDRD) Non-Af 55 L, BUN/Creatinine Ratio 18.2, Glucose 91, Calcium 8.6, Total Bilirubin 11.30 H, AST 133 H, ALT 54, Alkaline Phosphatase 101, Total Protein 7.3, Albumin 1.9 L, G lobulin 5.4 H, Albumin/Globulin Ratio 0.4 L 02/29/24 08:20: Fluid Source PARACENTESIS, Fluid Color YELLOW, Fluid Appearance SL CLDY, Fluid WBC 425, Fluid RBC 430, Fluid Tot Cell Count TNP, Fld Polynuclear WBCs # TNP, Fld Polynuclear WBCs % TNP, Fluid Mononuclear WBCs TNP, Fld Mononuclear WBCs % TNP, Fluid Neutrophils 71, Fluid Lymphocytes 4, Fluid Monocytes 10, Fld Mesothelial Cells 7, Fluid Other Cells 8, Fl Pathologist Comment May follow, Fluid Comment 2 SEE COMMENT Radiography Diagnostic Testing: Radiology Impression Abdomen/Pelvis CT 02/28/24 21:04 IMPRESSION: 1. Cirrhosis with extensive ascites/portal hypertensive changes including recanalization of paraumbilical vein. 2. Medium-sized ascites-containing right inguinal hernia. No bowel herniation. Electronically Signed: Isaias Greenberg MD at 0:16 EDT , Physical Exam Const alert, oriented x3 and no apparent distress Constitutional Narrative: jaundiced General Appearance: cooperative and well developed HEENT normocephalic, head/scalp atraumatic, moist oral mucous membranes and oropharynx normal Eyes PERRL and EOMs intact bilaterally Neck no lymphadenopathy and supple Lymph Lymphatic: no lymphadenopathy noted and no lymphedema noted Resp Resp Narrative: moderately diminished breath sounds bibasally, no wheezes or crackles. On 4L of oxygen by nasal canula Cardio regular rate, regular rhythm, S1 normal heart sound, S2 normal heart sound and no murmurs GI GI Narrative: abdomen distended, positive fluid thrill. no tenderness with palpation. Extremity normal capillary refill, no clubbing, cyanosis or edema and no calf tenderness General Extremity: no tenderness to palpation of joints or extremities Skin General Skin Exam: no breakdown Neuro CN's II-XII intact bilaterally, no focal motor deficits, no sensory deficits noted and deep tendon reflexes 2+ bilaterally Motor Exam: strength 5/5 throughout and general weakness Psych thought process normal, cooperative and affect normal Appearance: appropriate Assessment & Plan Assessment/Plan (1) Ascites: QUALIFIERS: Ascites type: due to alcoholic cirrhosis Qualified Code(s): K70.31 - Alcoholic cirrhosis of liver with ascites (2) Hyponatremia: (3) Decompensation of cirrhosis of liver: (4) Alcohol abuse: PLAN: Plan #Ascites due to alcoholic liver disease * admitted with a complaint of abdominal distension. Had paracentesis today with removal of 3.55L of fluid * has a history of chronic alcohol abuse and had an elevated MELD score of 31 and Madrey discriminant function score of 67. INR was also elevated. * GI consulted. Acute hepatitis panel ordered. * Will give albumin in light of patient's getting paracentesis. * check ascitic fluid for SAAG and sent for routine analysis and culture. * #Severe hyponatremia: * Sodium was 112 on admission and is now 114. * Being hydrated with IV fluids. * Nephrology consulted. Await recs. * Serum osmolality was low at 261. * Urine osmolality not done and urine sodium not done. * Await nephrology evaluation. * This is likely a hypervolemic hyponatremia due to ascites * #Histroy of severe alcohol abuse * Said he drinks about 8 cans of beer daily for many years. His last drink was about 2 to 3 days prior to admission. * Total bilirubin markedly elevated at 11. * AST and ALT within normal limits though AST ALT ratio is more than 2 is to 1 indicating alcoholic liver disease. * Will get differentiation of the bilirubin. * * #SRINIVASAN: Cr is 1.43. likely pre-renal, due to ascites. Hydrate gently with IVF. Will give albumin to also help with intravascular fluid mobilisation s/p paracentesis #Hypercoagulable disorder * due to alcoholic liver disease. INR was 2.4 on admission and 2.6 today. He did vitamin K admission. Will hold off any further vitamin K doses. * #Anemia: * Iron level is 87 with TIBC being low at 104 and iron saturation of 83.7. * Ferritin is also markedly elevated though this may be an acute phase reactant. * Hb is 8.8. * DVT prophylaxis; SCDs Charges/Coding Visit Charges Inpatient E&M: 86143 Subs Hosp L3
[2024-02-29 11:28] LABS: Sodium Level 115 mmol/L (136-145)
--- NOTE | 2024-02-29 12:05 | CASEMGMT ---
BARBARA MENDEZ Assessment Face to Face with patient for initial transition planning/care coordination assessment. BARBARA MENDEZ introduced self and role at [facility], pt voices understanding. Pt is A&Ox4 and is resting comfortably in bed and is calm. Care providers, pharmacy, and demographics verified. Admitting dx: Severe Hyponatremia, Alcoholic Hepatitis PCP: Sindhu Meyer Specialists: Sayra (Pulmonary) Preferred Pharmacy: [facility] Insurance: [facility] A/B, [facility] Prescription Benefit: Yes LNOK: Paco Lo (SO) Living Arrangements: Pt lives with his SO in a trailer with 4 steps to enter ADLs/IADLs: Ind Transportation: Self, SO DME: [facility]. Pt states that he has home O2 through [employer]. Pt states that he wears 2L at HS. Pt states that he has a concentrator. No portability. Pt denies having a pulse Ox and was educated about purchasing options. E-Mail sent to [email or web address] to verify current Rx. CM to follow. HHC/SNF: Denies history or needs ETOH: Pt states that he was drinking 10-12 beers per day. Pt states recently that he has been drinking 2 per day. Pt?s goal: Home Plan: Home. Follow for HHC or OP therapy. PT eval pending. Pt states that his goal is to DC home and denies SNF. Pt states that he may be interested in HHC or OP therapy if he qualifies. Pt states that it is too early to tell at this time. CM to follow. Ashley Littlejohn RN, CM
--- NOTE | 2024-02-29 13:38 | CON.PCM.RE_ITS ---
Assessment & Plan Assessment/Plan (1) Hyponatremia: (2) Ascites: QUALIFIERS: Ascites type: due to alcoholic cirrhosis Qualified Code(s): K70.31 - Alcoholic cirrhosis of liver with ascites (3) Alcohol abuse: (4) SRINIVASAN (acute kidney injury): PLAN: Plan This is a 54-year-old male with past medical history significant for hypertension, GERD, COPD, history of heavy alcohol use who presented to emergency room yesterday with complaints of abdominal pain/distention. Nephrology consulted in view of hyponatremia. Sodium was 112 yesterday in ER at 5 AM sodium 114, at 1030 Sodium 115. Serum sodium level ordered for 1530 today. Patient did receive 1 liter NS in ER. No further IV fluids since admission. No baseline Sodium for comparison. Patient had paracentesis today with ~3.5 liters fluid removed, he has been ordered 25 g IV albumin x 1. Likely hypervolemic hyponatremia secondary to history of heavy alcohol abuse (beer potomania) along with poor solute intake. Serum Osmo 261. Urine osmole and urine lytes pending. Will continue to monitor sodium trends frequently so to avoid rapid rise/correction of sodium levels with aim for increase of serum sodium of no more than 8mmol/L/day. Currently patient does not have any symptoms of hyponatremia. Patient also noted to have elevated serum creatinine this morning. His creatinine was 0.9 on admission and today SCr 1.43. No lab work to determine baseline serum creatinine. Patient has been hypotensive with systolic bp as low as 85. Patient had CT of abdomen pelvis with IV contrast yesterday which showed no hydronephrosis, normal renal size and position. SRINIVASAN possibly multifactorial from hypotension, IV contrast, fluctuation in hemodynamics. Patient has + urine output. Blood pressure still remains low but improved, recommend continue holding lisinopril, he is going to be receiving IV albumin. Urinalysis showed 30 protein, 25 occult blood, positive leukocyte Estrace. GI consulted. Further orders forthcoming as hospitalization evolves. Thank you for allowing us to participate in care of Mr. Gaytan. HPI Consult Data Date of Consult: 02/29/24 HPI Narrative HPI Narrative: ALEX GAYTAN, is a 54 M who presented to the emergency room yesterday with complaints of abdominal pain/distention. Patient has past medical history significant for heavy alcohol drinking, GERD, COPD, hypertension. Workup in the emergency room: CT of abdomen/pelvis with IV contrast showed cirrhosis with extensive ascites and anasarca, INR 2.4, bilirubin 10, platelet count 88, albumin 1.9, creatinine 0.91, and sodium 112. Patient did receive 1 L normal saline IV fluids in emergency room. Patient was admitted for further evaluation and treatment. Nephrology consulted for hyponatremia. Patient is alert and oriented. Denies any recent nausea, vomiting, diarrhea before hospital admission. Denies any headaches or vision changes. Denies recent falls. Patient reports because of abdominal distention he had cut back his beer consumption past few days. [facility] Medical History (Updated 02/29/24 @ 13:42 by MAYNOR Pierre) GERD (gastroesophageal reflux disease) COPD (chronic obstructive pulmonary disease) Hypertension Home Medications ?Medication ?Instructions ?Recorded ?Last Taken ?Type albuterol sulfate 90 mcg/actuation 2 puff inhalation Q6H PRN PRN 02/29/24 Unknown History aerosol inhaler shortness of breath or wheezing amlodipine 5 mg tablet 5 mg PO DAILY 02/29/24 Unknown History budesonide-formoterol HFA 160 2 puff inhalation BID 02/29/24 Unknown History mcg-4.5 mcg/actuation aerosol inhaler (Symbicort) lisinopril 40 mg tablet 40 mg PO DAILY 02/29/24 Unknown History Allergy/AdvReac Type Severity Reaction Status Date / Time No Known Allergies Allergy Verified 02/29/24 03:15 Surgical History no surgical history Social History Smoking Status: Current every day smoker tobacco type: cigarettes and smokeless tobacco ROS ROS Narrative As in HPI and past medical history Physical Exam Narrative Alert and oriented, no apparent distress S1, S2, RRR Lung sounds clear Abdomen soft, rounded, nontender No edema Lab / Micro Data 02/29/24 05:07 02/29/24 10:35 Labs: Laboratory Results - last 24 hr 02/28/24 20:35: WBC 7.4, RBC 2.18 L, Hgb 8.4 L, Hct 23.1 L, MCV 106.0 H, MCH 38.5 H, MCHC 36.4 H, RDW Std Deviation 56.0 H, RDW Coeff of Pushpa 14.7 H, Plt Count 88 L, MPV 9.5, Immature Gran % (Auto) 0.900, Neut % (Auto) 71.5 H, Lymph % (Auto) 9.5 L, [place] % (Auto) 16.4 H, Eos % (Auto) 1.4, Baso % (Auto) 0.3, Absolute Neuts (auto) 5.3, Absolute Lymphs (auto) 0.70 L, Nucleated RBC % 0, S odium 112 L*, Potassium 4.8, Chloride 77 L, Carbon Dioxide 27.0, Anion Gap 8, B UN 21 H, Creatinine 0.91, Est GFR (MDRD) Af Amer 112, Est GFR (MDRD) Non-Af 93, BUN/Creatinine Ratio 23.1 H, Glucose 87, Calcium 8.4 L, Total Bilirubin 10.80 H, AST 122 H, ALT 49, Alkaline Phosphatase 101, Total Protein 7.1, Albumin 1.9 L, G lobulin 5.2 H, Albumin/Globulin Ratio 0.4 L 02/28/24 21:12: PT 26.3 H, INR 2.4, APTT 41.2 H, Lactic Acid 2.4 H*, Lipase 104 H, Ethyl Alcohol 18.0 02/28/24 23:00: Ammonia < 10.0 L 02/28/24 23:37: Urine Color Jenny, Urine Clarity Clear, Urine pH 5.0, Ur Specific [place] 1.010, Urine Protein 30 H, Urine Glucose (UA) Normal, Urine Ketones 15 H, Urine Occult Blood 25 H, Urine Nitrite Negative, Urine Bilirubin 6 H, Urine Urobilinogen 8 H, Ur Leukocyte Esterase 25 H, Urine RBC 5-10 SEEN, Urine WBC 5-10 SEEN, Ur Squamous Epith Cells 0-5 SEEN, Urine Bacteria 1+, Urine Mucus 0 SEEN 02/29/24 01:42: Lactic Acid 2.1 H* 02/29/24 02:22: Sodium 115 L*, Potassium 4.9, Chloride 77 L, Carbon Dioxide 29.0, Anion Gap 9, BUN 25 H, Creatinine 1.18, Estim Creat Clear Calc 86.08, Est GFR (MDRD) Af Amer 83, Est GFR (MDRD) Non-Af 69, BUN/Creatinine Ratio 21.2 H, Glucose 93, Serum Osmolality 261 L, Calcium 8.6, Iron 87, TIBC 104 L, Iron Saturation 83.7 H, Ferritin 3923 H, Vitamin B12 > 2000 H, Folate 5.00, A cetaminophen < 2.0 L 02/29/24 05:07: WBC 9.7, RBC 2.25 L, Hgb 8.8 L, Hct 23.8 L, MCV 105.8 H, MCH 39.1 H, MCHC 37.0 H, RDW Std Deviation 57.3 H, RDW Coeff of Pushpa 14.8 H, Plt Count 94 L, MPV 9.4, PT 27.7 H, INR 2.6, Sodium 114 L*, Potassium 5.1, Chloride 77 L, Carbon Dioxide 29.0, Anion Gap 8, BUN 26 H, Creatinine 1.43 H, Estim Creat Clear Calc 71.03, Est GFR (MDRD) Af Amer 67, Est GFR (MDRD) Non-Af 55 L, BUN/Creatinine Ratio 18.2, Glucose 91, Calcium 8.6, Total Bilirubin 11.30 H, AST 133 H, ALT 54, Alkaline Phosphatase 101, Total Protein 7.3, Albumin 1.9 L, G lobulin 5.4 H, Albumin/Globulin Ratio 0.4 L 02/29/24 08:20: Fluid Source PARACENTESIS, Fluid Color YELLOW, Fluid Appearance SL CLDY, Fluid WBC 425, Fluid RBC 430, Fluid Tot Cell Count TNP, Fld Polynuclear WBCs # TNP, Fld Polynuclear WBCs % TNP, Fluid Mononuclear WBCs TNP, Fld Mononuclear WBCs % TNP, Fluid Neutrophils 71, Fluid Lymphocytes 4, Fluid Monocytes 10, Fld Mesothelial Cells 7, Fluid Other Cells 8, Fl Pathologist Comment May follow, Fluid Comment 2 SEE COMMENT 02/29/24 10:35: Sodium 115 L* Imaging Radiology Impression Abdomen/Pelvis CT 02/28/24 21:04 IMPRESSION: 1. Cirrhosis with extensive ascites/portal hypertensive changes including recanalization of paraumbilical vein. 2. Medium-sized ascites-containing right inguinal hernia. No bowel herniation. Electronically Signed: Isaias Greenberg MD at 0:16 EDT ,
[2024-02-29] MEDS: Albumin Human 25% (100 mL) 25 GM/100 ML BAG IV (15:17)
[2024-02-29 15:38] LABS: Osmolality, Urine 296 mOsm/KG
[2024-02-29 15:40] LABS: Urine Sodium 6 mmol/L (Not Establ.)
--- NOTE | 2024-02-29 16:16 | CASEMGMT ---
Advance Directive Received advance directive validation notice. Chart reviewed and noted patient answered upon admission that does not have a POAHC or Living Will. Patient also declined upon admission wanting further information. No further needs identified or requested at this time. -MARIELY Chu
--- NOTE | 2024-02-29 16:19 | EX.PCM.CON.G ---
HPI Consult Data Date of Consult: 02/29/24 HPI Narrative Reason for Consultation: Alcoholic hepatitis HPI Narrative: ALEX GAYTAN, is a 54 M who presented to [facility] ED on 02/29/2024 with worsening abdominal pain and distention. Patient seen at bedside in the ED. He was sitting up fairly comfortably in bed, making appropriate eye contact and answering questions with short appropriate responses. He did seem to have mild cognitive delay. He otherwise was in no acute distress. Patient states his abdomen has steadily been increasing in size over about a month. He has never had this before. Patient reports fairly heavy drinking history in the past but states has been weaning himself off alcohol since his abdominal pain and distention started and is currently only having about 2 beers per day. Denies any alcohol withdrawal symptoms. Has had decreased appetite and has felt more full over the past 2 weeks. Denies any fevers or chills. Reports occasional diarrhea but denies any nausea or vomiting. He otherwise currently denies any acute concerns. Per ED staff, patient mother was present with him on arrival to the ED. She also noticed that his eyes were becoming more yellow and his skin seem to be yellowing as well. Patient states that he lives with his girlfriend. States he has not been able to do much around the house over the past few weeks. Vitals in ED notable for mild sinus tachycardia, otherwise unremarkable. No baseline labs were available. Labs in ED notable for hemoglobin 8.4, MCV 106, platelets 88, INR 2.4, sodium 112, potassium 4.8, chloride 77, bicarb 27, BUN 21, creatinine 0.91, T. bili 10.0, AST 122, ALT 49, alk phos 101, albumin 1.9. Lactate 2.4. CT abdomen pelvis with IV contrast showed cirrhosis with extensive ascites along with anasarca. In the ED, patient was given 1 L normal saline bolus along with serial doses of IV morphine and IV Zofran. Patient was then admitted for further management. He had a CT scan abdomen pelvis : cirrhosis with extensive ascites/portal hypertensive changes including recanalization of paraumbilical vein. Medium-sized ascites-containing right inguinal hernia. No bowel herniation. He underwent large-volume paracentesis and had 3.5 L of serosanguineous fluid removed. He received 25 g albumin after the procedure. He is feeling a little bit better since getting the fluid removed. He has been sleeping all day. He has been seen by nephrology number and diagnosed with paraproteinemia due to hyponatremia from free water intake. [facility] Medical History (Updated 02/29/24 @ 13:42 by MAYNOR Pierre) GERD (gastroesophageal reflux disease) COPD (chronic obstructive pulmonary disease) Hypertension Home Medications ?Medication ?Instructions ?Recorded ?Last Taken ?Type albuterol sulfate 90 mcg/actuation 2 puff inhalation Q6H PRN PRN 02/29/24 Unknown History aerosol inhaler shortness of breath or wheezing amlodipine 5 mg tablet 5 mg PO DAILY 02/29/24 Unknown History budesonide-formoterol HFA 160 2 puff inhalation BID 02/29/24 Unknown History mcg-4.5 mcg/actuation aerosol inhaler (Symbicort) lisinopril 40 mg tablet 40 mg PO DAILY 02/29/24 Unknown History Allergy/AdvReac Type Severity Reaction Status Date / Time No Known Allergies Allergy Verified 02/29/24 03:15 Surgical History no surgical history Social History Smoking Status: Current every day smoker tobacco type: cigarettes and smokeless tobacco ROS Constitutional Constitutional: Reports fatigue; Denies chills or fever(s) Eyes Eyes: Denies change in vision Cardiovascular Cardiovascular: Denies chest pain Respiratory/Chest Respiratory/Chest: Reports shortness of breath with exertion; Denies cough, shortness of breath at rest or wheezing Gastrointestinal Gastrointestinal: Reports abdominal pain and diarrhea; Denies constipation, nausea or vomiting Neurologic Neurologic: Denies dizziness, focal weakness or headache(s) Physical Exam Narrative Alert and oriented, no apparent distress S1, S2, RRR Lung sounds clear Abdomen soft, rounded, nontender No edema Const alert, oriented x3 and no apparent distress Constitutional Narrative: jaundiced General Appearance: cooperative and well developed HEENT normocephalic, head/scalp atraumatic, moist oral mucous membranes and oropharynx normal Eyes PERRL and EOMs intact bilaterally Neck no lymphadenopathy and supple Lymph Lymphatic: no lymphadenopathy noted and no lymphedema noted Resp Resp Narrative: moderately diminished breath sounds bibasally, no wheezes or crackles. On 4L of oxygen by nasal canula Cardio regular rate, regular rhythm, S1 normal heart sound, S2 normal heart sound and no murmurs GI GI Narrative: abdomen distended, positive fluid thrill. no tenderness with palpation. Extremity normal capillary refill, no clubbing, cyanosis or edema and no calf tenderness General Extremity: no tenderness to palpation of joints or extremities Skin General Skin Exam: no breakdown Neuro CN's II-XII intact bilaterally, no focal motor deficits, no sensory deficits noted and deep tendon reflexes 2+ bilaterally Motor Exam: strength 5/5 throughout and general weakness Psych thought process normal, cooperative and affect normal Appearance: appropriate Lab / Micro Data 02/29/24 05:07 02/29/24 10:35 Labs: Laboratory Results - last 24 hr 02/28/24 20:35: WBC 7.4, RBC 2.18 L, Hgb 8.4 L, Hct 23.1 L, MCV 106.0 H, MCH 38.5 H, MCHC 36.4 H, RDW Std Deviation 56.0 H, RDW Coeff of Pushpa 14.7 H, Plt Count 88 L, MPV 9.5, Immature Gran % (Auto) 0.900, Neut % (Auto) 71.5 H, Lymph % (Auto) 9.5 L, [place] % (Auto) 16.4 H, Eos % (Auto) 1.4, Baso % (Auto) 0.3, Absolute Neuts (auto) 5.3, Absolute Lymphs (auto) 0.70 L, Nucleated RBC % 0, Sodium 112 L*, Potassium 4.8, Chloride 77 L, Carbon Dioxide 27.0, Anion Gap 8, BUN 21 H, Creatinine 0.91, Est GFR (MDRD) Af Amer 112, Est GFR (MDRD) Non-Af 93, BUN/Creatinine Ratio 23.1 H, Glucose 87, Calcium 8.4 L, Total Bilirubin 10.80 H, AST 122 H, ALT 49, Alkaline Phosphatase 101, Total Protein 7.1, Albumin 1.9 L, Globulin 5.2 H, Albumin/Globulin Ratio 0.4 L 02/28/24 21:12: PT 26.3 H, INR 2.4, APTT 41.2 H, Lactic Acid 2.4 H*, Lipase 104 H, Ethyl Alcohol 18.0 02/28/24 23:00: Ammonia < 10.0 L 02/28/24 23:37: Urine Color Jenny, Urine Clarity Clear, Urine pH 5.0, Ur Specific [place] 1.010, Urine Protein 30 H, Urine Glucose (UA) Normal, Urine Ketones 15 H, Urine Occult Blood 25 H, Urine Nitrite Negative, Urine Bilirubin 6 H, Urine Urobilinogen 8 H, Ur Leukocyte Esterase 25 H, Urine RBC 5-10 SEEN, Urine WBC 5-10 SEEN, Ur Squamous Epith Cells 0-5 SEEN, Urine Bacteria 1+, Urine Mucus 0 SEEN 02/29/24 01:42: Lactic Acid 2.1 H* 02/29/24 02:22: Sodium 115 L*, Potassium 4.9, Chloride 77 L, Carbon Dioxide 29.0, Anion Gap 9, BUN 25 H, Creatinine 1.18, Estim Creat Clear Calc 86.08, Est GFR (MDRD) Af Amer 83, Est GFR (MDRD) Non-Af 69, BUN/Creatinine Ratio 21.2 H, Glucose 93, Serum Osmolality 261 L, Calcium 8.6, Iron 87, TIBC 104 L, Iron Saturation 83.7 H, Ferritin 3923 H, Vitamin B12 > 2000 H, Folate 5.00, Acetaminophen < 2.0 L 02/29/24 05:07: WBC 9.7, RBC 2.25 L, Hgb 8.8 L, Hct 23.8 L, MCV 105.8 H, MCH 39.1 H, MCHC 37.0 H, RDW Std Deviation 57.3 H, RDW Coeff of Pushpa 14.8 H, Plt Count 94 L, MPV 9.4, PT 27.7 H, INR 2.6, Sodium 114 L*, Potassium 5.1, Chloride 77 L, Carbon Dioxide 29.0, Anion Gap 8, BUN 26 H, Creatinine 1.43 H, Estim Creat Clear Calc 71.03, Est GFR (MDRD) Af Amer 67, Est GFR (MDRD) Non-Af 55 L, BUN/Creatinine Ratio 18.2, Glucose 91, Calcium 8.6, Total Bilirubin 11.30 H, AST 133 H, ALT 54, Alkaline Phosphatase 101, Total Protein 7.3, Albumin 1.9 L, Globulin 5.4 H, Albumin/Globulin Ratio 0.4 L 02/29/24 08:20: Fluid Source PARACENTESIS, Fluid Color YELLOW, Fluid Appearance SL CLDY, Fluid WBC 425, Fluid RBC 430, Fluid Tot Cell Count TNP, Fld Polynuclear WBCs # TNP, Fld Polynuclear WBCs % TNP, Fluid Mononuclear WBCs TNP, Fld Mononuclear WBCs % TNP, Fluid Neutrophils 71, Fluid Lymphocytes 4, Fluid Monocytes 10, Fld Mesothelial Cells 7, Fluid Other Cells 8, Fl Pathologist Comment May follow, Fluid Comment 2 SEE COMMENT 02/29/24 10:35: Sodium 115 L* 02/29/24 15:10: Urine Osmolality 296, Ur Random Sodium 6 Imaging Radiology Impression Abdomen/Pelvis CT 02/28/24 21:04 IMPRESSION: 1. Cirrhosis with extensive ascites/portal hypertensive changes including recanalization of paraumbilical vein. 2. Medium-sized ascites-containing right inguinal hernia. No bowel herniation. Electronically Signed: Isaias Greenberg MD at 0:16 EDT , Assessment & Plan Assessment/Plan (1) Hyponatremia: (2) Ascites: QUALIFIERS: Ascites type: due to alcoholic cirrhosis Qualified Code(s): K70.31 - Alcoholic cirrhosis of liver with ascites (3) Alcohol abuse: (4) SRINIVASAN (acute kidney injury): (5) Acute liver failure: (6) Decompensation of cirrhosis of liver: PLAN: Plan Patient is a 54-year-old male who presented to [facility] ED on 02/29/2024 with worsening abdominal pain and distention. 1. Acute liver failure with with alcoholic hepatitis suspected secondary to decompensated alcoholic cirrhosis with ascites ? MELD-Na score on admit of 31, Maddrey's score of 67. His INR did not respond to vitamin K administration. He is status post large-volume paracentesis. suspect elevated INR may impart be due to a nutritional deficiency, will give a dose of IV vitamin K 5 mg. Radiology consulted for diagnostic and therapeutic ultrasound-guided paracentesis. Will defer to GI on consideration of steroids. Acute hepatitis panel ordered. Acetaminophen level ordered. Monitor closely. Obtain cell count with diff. Calculate the PMNs: total nucleated cells x % neutrophils. 2 x 71 = 142 PMNs > 250 cells is diagnostic of SBP. If there are greater than 100k RBCs, you should correct for them: for every 250 RBCs, subtract 1 PMN. A positive ascitic bacterial culture with PMN <250 is called bacterascites and asymptomatic patients should NOT receive antibiotics. -INTERPRETATION OF RESULTS:Differentiation of transudate and exudate fluid:TRANSUDATE EXUDATE Color- Clear,straw colored Clear,turbid,bloody,purulentRBCs- Usually none to few Often present in high numbersWBCs- Usually none to few Often present in high numbers DIFF Few lymphocytes or Lymphocytes, neutrophils, andCount- mesothelial cells. polymorphonuclear cells 2. Severe hyponatremia ? Sodium 112 on admit. Chloride 77. Mild cognitive slowing noted but otherwise alert and oriented x 3, suspect this is more chronic than acute. Serum osmolality, urine osmolality and urine sodium ordered. Given 1 L normal saline in the ED, repeat sodium 4 hours later only up to 115. Will hold on further IV fluids for now, repeat BMP at 6 AM. Nephrology consulted. Goal sodium level 118-120 in first 24 hours. 3. Macrocytic anemia ? Hemoglobin 8.4 on admit, MCV 106. He should undergo an upper endoscopy to evaluate his upper GI tract for varices. Baseline unknown. No active signs of bleeding noted. Iron studies showed normal iron level, ferritin significantly elevated at 3923. Vitamin B12 level greater than 2000, folate 5. Seems most consistent with anemia of chronic disease. Monitor daily CBC. 4. Alcoholic hepatitis ? In a national paper [place] Journal of [employer] it showed that prednisolone plus N-acetylcysteine showed a significant 1 month reduction in mortality from 8% to 24%. However the trend did not show significant benefit over 1 month. I will start him on N-acetylcysteine and prednisolone. P
[2024-02-29 16:31] LABS: Anion Gap 13 (5-15); BUN 32 mg/dL (7-18); BUN/Creat Ratio 14.7 RATIO (10-20); Calcium,Total 8.5 mg/dL (8.5-10.1); Chloride 77 mmol/L (98-107); Creatinine, Serum 2.17 mg/dL (0.70-1.30); EST Glomerular Filtration Rate 34 mL/min (>60); Est Glom Filt Rate - Afr Amer 41 mL/min (>60); Estimated Creatinine Clearance 46.81 ml/min; Glucose 74 mg/dL (74-106); Potassium 6.1 mmol/L (3.5-5.1); Sodium Level 115 mmol/L (136-145)
[2024-02-29] MEDS: 0.9% Normal Saline (1000mL) 1,000 ML 125 ML IV (16:53)
[2024-02-29] MEDS: Acetylcysteine 15,000 MG in Dextrose 5%-Water (250mL Bag) 200 ML 275 MG IV (16:56)
--- NOTE | 2024-02-29 17:43 | NURSING ---
Notified nephrology of critical labs, potassium 6.1 and sodium 115. Physician ordered redraw of potassium.
[2024-02-29] MEDS: Midodrine HCl 5 MG Tablet 10 MG PO (17:49)
[2024-02-29] MEDS: Acetylcysteine 5,000 MG in Dextrose 5%-Water (500mL Bag) 500 ML 32.8 MG IV (17:52)
[2024-02-29] MEDS: Sodium Polystyrene Sulfonate 15 GM/60 ML UDC 30 GM PO (18:49)
[2024-02-29 20:33] LABS: Blood Gas Specimen Type VEN; O2 Delivery Device Cannula; SITE Not entered; VBG BASE EXCESS -8 mmol/L (-1.0-3.5); VBG Bicarbonate 20 mmol/L (22-26); VBG PO2 66 mmHg (25-40); VBG SO2 88 % (50-70); VBG TCO2 21 mmol/L (23-33); VBG pCO2 48.1 mmHg (41-51); VBG pH 7.23 (7.32-7.42)
--- NOTE | 2024-02-29 20:52 | PCM.HOSP.N ---
Hospitalist Note Patient admitted yesterday evening for suspected decompensated cirrhosis. Had paracentesis done today with 3550 mL taken off. Notified by nursing staff this evening that patient's blood pressures were running low in the 80s over 30s. He was given a dose of IV albumin post paracentesis and had maintenance normal saline running, but his oxygen saturations were worsening as well. He has also had a precipitous increase in his creatinine today concerning for a degree of hepatorenal syndrome. Discontinued normal saline and will give admit doses of IV albumin overnight. VBG obtained that showed pH 7.22 with suspected mixed respiratory and metabolic acidosis. Discussed with respiratory and will place patient on BiPAP for now. Given low blood pressures and concern for hepatorenal syndrome, will transfer patient to ICU for pressor medication as needed.
[2024-02-29 21:05] LABS: Anion Gap 16 (5-15); BUN 32 mg/dL (7-18); BUN/Creat Ratio 12.3 RATIO (10-20); Calcium,Total 8.4 mg/dL (8.5-10.1); Chloride 79 mmol/L (98-107); Creatinine, Serum 2.61 mg/dL (0.70-1.30); EST Glomerular Filtration Rate 27 mL/min (>60); Est Glom Filt Rate - Afr Amer 33 mL/min (>60); Estimated Creatinine Clearance 38.92 ml/min; Glucose 72 mg/dL (74-106); Potassium 6.1 mmol/L (3.5-5.1); Sodium Level 115 mmol/L (136-145)
[2024-02-29] MEDS: Norepinephrine 8 MG in 0.9% Normal Saline (250mL Bag) 242 ML 9.4 MG CONT INF (21:37)
[2024-02-29 22:18] LABS: Bedside Glucose 65 mg/dL (74-106)
[2024-02-29 23:58] LABS: Absolute Lymphocyte Count 0.62 X10^3/uL (0.83-4.51); Basophil# 0.01 X10^3/uL; Basophil% 0.1 % (0-1); Eosinophil# 0.01 X10^3/uL; Eosinophils% 0.1 % (0-5); Hemoglobin 6.5 g/dL (13.0-16.5); Lymphocyte # 0.62 X10^3/ul (0.83-4.51); Lymphocyte % 7.9 % (19-41); Mean Corp Hgb Conc 34.2 g/dL (32-36); Mean Corpuscular Hgb 39.9 pg (27.0-32.0); Mean Corpuscular Volume 116.6 fL (80-94); Mean Platelet Vol. 10.1 fl (6.2-12.0); Monocyte# 1.02 X10^3/uL; NRBC Flagged by Analyzer 0.5 % (0-5); Neutrophil # 6.01 X10^3/uL (2.7-7.7); POSITIVE COUNT YES; POSITIVE MORPHOLOGY YES; Platelet Count 90 K/mm3 (150-450); RBC Distribution Width SD 67.9 fl (35.1-43.9); Red Blood Count 1.63 M/mm3 (4.6-6.2); White Blood Count 7.8 K/mm3 (4.4-11.0)
[2024-03-01] VITALS (17 sets, daily range): BP systolic 0–86; BP diastolic 0–37; PULSE 0–70; RESP 0–21; TEMP 35.5–36.1; O2SAT 98–100
[2024-03-01 00:03] LABS: Differential Indicated SCAN CRITERIA MET; Prothrombin Time (Protime)PT. 61.6 SECONDS (11.7-14.9)
--- NOTE | 2024-03-01 00:09 | NURSING ---
Pt's next of kin Paco called back after msg left earlier to gain consent for blood products and central line placement; Paco answered that they are boyfriend and girlfriend, but have been together for a while. This RN asked Paco if pt had any adult children, or living parents, and Paco responded that he had parents. Explained to Paco the events of the night and the new medications required to maintain pt's BP while in ICU, Paco became distraught on the phone and cried They told me everything was going to be ok today! Attempted to give emotional support over the phone and redirect Paco, but then she ended the phone call before providing the pt's parents' names and phone numbers.
[2024-03-01 00:35] LABS: ALB/GLOB Ratio 0.4 RATIO (0.9-2.4); AST(SGOT) 426 U/L (15-37); Alanine Aminotransfer ALT/SGPT 125 U/L (16-61); Albumin, Serum 1.7 g/dL (3.2-5.0); Alkaline Phosphatase 69 U/L (45-117); Anion Gap 21 (5-15); BUN 32 mg/dL (7-18); BUN/Creat Ratio 10.9 RATIO (10-20); Calcium,Total 8.4 mg/dL (8.5-10.1); Chloride 77 mmol/L (98-107); Creatinine, Serum 2.94 mg/dL (0.70-1.30); EST Glomerular Filtration Rate 24 mL/min (>60); Est Glom Filt Rate - Afr Amer 29 mL/min (>60); Estimated Creatinine Clearance 34.55 ml/min; Glucose 107 mg/dL (74-106); International Normalized Ratio 7.3; Potassium 6.3 mmol/L (3.5-5.1); Protein, Total 5.7 g/dL (6.4-8.2); Sodium Level 116 mmol/L (136-145)
[2024-03-01 00:51] LABS: Anisocytosis 1+; Platelet Estimate SLT DEC (ADEQ)
[2024-03-01 00:54] LABS: Fibrinogen 71 mg/dl (203-444)
[2024-03-01] MEDS: Albumin Human 25% (100 mL) 25 GM/100 ML BAG IV ×2 (00:55→01:56)
[2024-03-01 01:44] LABS: D-Dimer Quantitative (DVT/PE) 15.08 FEU/ug/m (0.27-0.49)
--- NOTE | 2024-03-01 01:57 | PCM.HOSP.N ---
Hospitalist Note Labs were drawn on arrival to the ICU and unfortunately they are consistent with DIC. INR has risen significantly to 7.3, fibrinogen 71, D-dimer 15.0. Hemoglobin has downtrended from 8.8 to 6.5. Platelets are stable at 90. Patient's blood pressures remains low and Levophed is currently running at 15 mcg/hr through a peripheral IV. Unfortunately I cannot place a central line at this time due to his significant coagulopathy. Will give 2 units of FFP and 2 units of packed red blood cells now. Called patient's mother Radha to discuss patient with her. She is the patient's next of kin. I notified her that patient appears to be in acute liver failure with DIC and I have high concern that patient could in the next several hours. Radha's Reid (patient's stepdad) was also present on the phone. Notably patient lives with his girlfriend Paco who has been in contact with nursing staff and with patient's mother this evening. Radha was very emotional with this news, as her daughter apparently from complications of cirrhosis 6 years ago. Radha and Reid live in [place] and were agreeable to coming in to the hospital tonight. I also discussed patient's CODE STATUS with him and they were agreeable to transitioning patient to DNR CCA, DNI status.
[2024-03-01 05:07] LABS: HEPATITIS B SURFACE AG Negative (Negative); Hep C Antibodies Non Reactive (Non Reactive); Hepatitis A IgM Antibody Negative (Negative); Hepatitis B Core AB IgM Negative (Negative)
[2024-03-01] MEDS: Norepinephrine 8 MG in 0.9% Normal Saline (250mL Bag) 242 ML 54.4 MG CONT INF (05:07)
--- NOTE | 2024-03-01 05:15 | NURSING ---
at pt bedside to discuss prognosis w/all of family; code status changed to [id number], OK to withdraw care after last family member arrives and when they're ready.
--- NOTE | 2024-03-01 05:25 | NURSING ---
OK not to give second unit PRBC as pt's family is deciding to withdraw care.
--- NOTE | 2024-03-01 05:28 | PCM.HOSP.N ---
Hospitalist Note Patient's mother Radha, girlfriend Paco and several other family members arrived to the hospital over the last few hours. They were agreeable to discussing the patient's care at the bedside. I discussed with them that the patient unfortunately is in acute liver failure and DIC, and due to his active drinking history he would not be a candidate for liver transplant. His Levophed requirements were slowly increasing over the night and he was on 29 mcg/hr through the peripheral IV during this conversation with MAPs in the high 40s. Per nursing staff, he had only a few MAPs higher than 50 since arriving up to the ICU. I answered the family's questions to the best of my ability. Family was in agreement with proceeding with comfort care measures. Medications ordered per hospice/comfort care order set and CODE STATUS changed to DNR CC.
--- NOTE | 2024-03-01 06:00 | NURSING ---
Pt's family notified that HR is very low at this time and encouraged to talk to pt and let him know that he's loved
--- NOTE | 2024-03-01 06:03 | NURSING ---
Time of 06, verified by BARBARA Cooper and BARBARA Esquivel; notified; family at bedside made aware of the absence of HR, reflexes and respiratory effort.
[2024-03-01] MEDS: Morphine 2 MG/ML Syringe IV (06:58)
[2024-03-01] MEDS: LORazepam 2 MG/ML Syringe IV (06:59)
--- NOTE | 2024-03-01 07:07 | PCM.DEATH ---
Preliminary Cause of Preliminary Cause of Preliminary Cause of : acute liver failure due to decompensated alcoholic liver cirrhosis hypovolemic shock acute kidney injury Date of Admission: 02/29/24 Date of : 03/01/24 Principle Diagnosis acute alcoholic liver failure Problem List: Active and Suspected Problems (Updated 02/29/24 @ 13:42 by MAYNOR Pierre) SRINIVASAN (acute kidney injury) (Acute) Ascites (Acute) Hyponatremia (Acute) Alcohol abuse (Acute) Decompensation of cirrhosis of liver (Acute) Acute liver failure (Acute) Lactic acidosis (Acute) Cirrhosis (Acute) Hyperbilirubinemia (Acute) Acute hyponatremia (Acute) Hospital Course Patient is a 54-year-old male with a past medical history of chronic alcohol abuse was admitted through the ED on 02/29/2024 with a complaint of worsening abdominal pain and distention. He said his abdomen has been increasing in size over a month. He had a history of heavy alcohol drinking and his last drink had been about 2 to 3 days prior to admission. He said he drank at least 6-8 beers daily. He denied any fever or chills and admitted to occasional diarrhea but no nausea or vomiting. On admission patient stated that he had noticed his eyes were becoming more yellow and his skin was yellowing as well. On admission labs were significant for hemoglobin of 8.4, INR of 2.4, platelets of 88, bilirubin of 10, AST of 122 and ALT of 49. Creatinine was 0.91 and potassium was 4.8. Lactic acid was 2.4. CT of the abdomen and pelvis with contrast shows cirrhosis with extensive ascites as well as anasarca. Sodium was 112. He was admitted and managed for acute liver failure due to decompensated alcoholic cirrhosis with ascites as well as severe hyponatremia and elevated lactic acid as well as thrombocytopenia. Gastroenterology and nephrology were consulted. He was hydrated with IV fluids. Paracentesis was ordered. Patient had removal of 3.56 L of fluid. He was given IV albumin afterwards. Patient's sodium increased to 114 later in the day and subsequently to 115. Patient was alert and communicative during the day. Due to his blood pressure starting to run low, he was given IV albumin 25 g x 1 after the paracentesis. Gastroenterology reviewed patient and recommended holding IV fluids. GI recommended upper endoscopy to evaluate his GI tract and thought his anemia was most consistent with anemia of chronic disease. Gastroenterology recommended starting patient on N-acetylcysteine and prednisone. Nephrology reviewed patient and felt that his SRINIVASAN was likely due to hypotension and IV contrast administration. Hospital course was complicated by potassium trending upwards to 6.1. Nephrology was informed and recommended repeating potassium drawn. Patient was also given Kayexalate. In the evening, patient's blood pressure went down to the 80s over 30s and his oxygen saturation also worsened. He had a precipitous increase in his creatinine which trended upwards, with concern for hepatorenal syndrome. He was placed on BiPAP due to worsening respiratory status and transferred to the ICU. Labs done were consistent with DIC with INR going up to 7.3, D-dimer of 15 and fibrinogen of 71 and hemoglobin had dropped to 6.5. He was started on Levophed through a peripheral IV. A central line could not be inserted because of patient's DIC. 2 units of packed red blood cells and 2 units of FFP's were ordered. Family was contacted by the [employer] administrator and patient's mother who was next of kin was counseled about his acute liver failure with DIC. Family switch CODE STATUS to DNR CCA DO NOT INTUBATE. . His Levophed requirements increased overnight up to 29 mcg/h through the peripheral IV. In light of patient's rapidly deteriorating situation, family opted to switch patient to DNR CC. Patient at 603 on 03/01/2024. Cause of is hypovolemic shock in the setting of acute liver failure due to decompensated liver cirrhosis with DIC. Visit Charges Inpatient E&M: [id number] Disch Hosp
[2024-03-01 13:01] LABS: Pathologist Comment/Body Fluid Reviewed
[2024-03-02 03:08] LABS: Albumin, Body Fluid 0.7 g/dL (Not Estab.)
== END 2024-03-01 06:03 | DRG 432 ==
LOC: ED 02-29 01:43 → PCU 02-29 02:12 → ICU 02-29 21:13
PROVIDERS: Internal Medicine Nephrology; Nurse Practitioner Adult Health; Admitting Provider Hospitalist; Emergency Provider Emergency Medicine; PCP Family Medicine; Visit Provider Student in an Organized Health Care Education/Training Program
DX: K70.31 Alcoholic cirrhosis of liver with ascites (principal); K72.00 Acute and subacute hepatic failure without coma; D65 Disseminated intravascular coagulation [defibrination syndrome]; N17.9 Acute kidney failure, unspecified; E87.1 Hypo-osmolality and hyponatremia; E87.20 Acidosis, unspecified; R57.1 Hypovolemic shock; D63.8 Anemia in other chronic diseases classified elsewhere; K70.11 Alcoholic hepatitis with ascites; J44.9 Chronic obstructive pulmonary disease, unspecified; I10 Essential (primary) hypertension; F10.10 Alcohol abuse, uncomplicated; D53.9 Nutritional anemia, unspecified; F17.210 Nicotine dependence, cigarettes, uncomplicated; Z79.51 Long term (current) use of inhaled steroids; Z66 Do not resuscitate
CPT/HCPCS: 36415; 49083; 74177; 80048; 80053; 80074; 80329; 81001; 82042; 82077; 82140; 82607; 82728; 82746; 82803; 82962; 83540; 83550; 83605; 83690; 83930; 83935; 84132; 84295; 84300; 85025; 85027; 85379; 85384; 85610; 85730; 86850; 86900; 86901; 86920; 87086; 87088; 88108; 88305; 88313; 89050; 94002; 94003; 94640; 94668; 94762; 99285; 99406; P9016; P9017; P9047; Q9967; A4216; G0480; J2405